=== PATIENT | male | born 1970 | race Caucasian/White ===

== ENCOUNTER 2023-11-02 06:17 | Day surgery (SDC) | payer OTHER ==
[2023-11-02] VITALS (14 sets, daily range): BP systolic 108–141; BP diastolic 65–80
[~2023-11-02] VITALS: Ht 175.3 cm; Wt 79.6 kg
--- NOTE | 2023-11-02 06:45 | NUR ---
Ambulatory in Day Surgery History, Chart, Medications and Allergies reviewed before start of procedure.Lungs clear T/O to Auscultation. Patient confirms NPO status and agrees with scheduled surgery. Patient reports completing Chlorhexadine shower X2 prior to admission to hospital.Surgical site prepped with 2% Chlorhexidine cloth wipe. Patient States Post-Procedure ride home has been arranged.
--- NOTE | 2023-11-02 10:30 | NUR ---
INTO STEP VIA [facility] S/P ROBOTIC BILATERAL HERNIA REPAIR. PT A&OX4. PT REPORTS 6/10 PAIN. DENIES NAUSEA. CLEAR LIQUIDS PROVIDED. EXOFEN TO INCISION X 3 SITES CLEAR NO BLEEDING NOTED.
--- NOTE | 2023-11-02 11:55 | NUR ---
Exofen to procedure site clean, dry, intact with no visible drainage, swelling, erythema or bruising noted. Discharge instructions reviewed with patient. Patient verbalizes understanding. Copy given to patient to take home.Pt discharged to home-out via wheelchair with belongings and discharge instructions on hand. Rx for pain med sent to [facility] electoronically per Dr. Murray.
== END 2023-11-02 11:55 | disposition home or self-care (01) ==
LOC: ORSCMMR 06:17 → ORD 07:30 → ORSCMMR 07:30
PROVIDERS: Surgery
PROC: 0YUA4JZ Supplement Bilateral Inguinal Region with Synthetic Substitute, Percutaneous Endoscopic Approach (ICD-10-PCS; principal; 2023-11-02 12:30)
PROC: 8E0W4CZ Robotic Assisted Procedure of Trunk Region, Percutaneous Endoscopic Approach (ICD-10-PCS; principal; 2023-11-02 12:30)
DX: K40.20 Bilateral inguinal hernia, without obstruction or gangrene, not specified as recurrent (principal)
CPT/HCPCS: A9270; C1781; J0690; J1100; J1885; J2250; J2405; J2704; J3010; J7120